=== PATIENT | male | born 1995 | race Caucasian/White ===

== ENCOUNTER 2018-10-11 16:40 | Inpatient (IN) | payer OTHER ==
[~2018-10-11] VITALS: Ht 170.2 cm; Wt 51.3 kg
[2018-10-11 17:08] LABS: PLATELET COUNT, AUTOMATED 353 K/uL (150-450)
--- NOTE | 2018-10-11 17:08 | ER Report ---
History and Physical Time Seen By MD: 16:50 Hx. of Stated Complaint: RLQ PAIN STARTED THIS MORNING, DENIES VOMITING, REPORTS SOME DIARRHEA AND NAUSEA HPI/ROS CHIEF COMPLAINT: RLQ pain HISTORY OF PRESENT ILLNESS: Pt started this morning with sudden onset of rlq pain radiation to back. Pain is sharp and varies from 3-8/10. Worse with palpation and with the car ride over. no dysuria. Pt had diarrhea but was in [place] for spring and contributed it to travelers. No fevers. never had this paina before. REVIEW OF SYSTEMS: Constitutional: No fever, no chills. Eyes: No discharge. ENT: No sore throat. Cardiovascular: No chest pain, no palpitations. Respiratory: No cough, no shortness of breath. Gastrointestinal: + abdominal pain, no vomiting. Genitourinary: No hematuria. Musculoskeletal: + back pain. Skin: No rashes. Neurological: No headache. Allergies: Coded Allergies: meperidine (Verified Allergy, Intermediate, HIVES, 10/11/18) Home Meds No Active Prescriptions or Reported Meds Past Medical/Surgical History Pmhx: childhood asthma Pshx: T&A Reviewed Nurses Notes: Yes Old Medical Records Reviewed: Yes Hx Smoking: No Hx Alcohol Use: Yes Constitutional Vital Sign - Last 24 Hours 10/11/18 10/11/18 10/11/18 10/11/18 16:48 16:49 17:00 17:15 Temp 98.6 Pulse 104 107 93 Resp 16 B/P (MAP) 145/90 (108) 145/90 Pulse Ox 99 100 94 O2 Delivery Room Air 10/11/18 10/11/18 10/11/18 10/11/18 17:45 18:00 18:15 18:30 Pulse 97 100 106 96 B/P (MAP) 117/76 (90) 125/87 (100) Pulse Ox 94 95 96 96 Physical Exam General Appearance: The patient is alert, has no immediate need for airway protection and no signs of toxicity. Eyes: Pupils equal and round no pallor or injection, EOMI ENT: no pharyngeal erythema or exudates, Mucous membranes are moist, TM are nl b/l Respiratory: There are no retractions, lungs are clear to auscultation. Cardiovascular: Regular rate and rhythm. pulses are equal and symmetrical Gastrointestinal: Abdomen is soft with RLQ tenderness, no masses, bowel sounds normal, no guarding, no rigidity or rebound Neurological: Cranial nerves II-XII grossly intact, no sensory or motor loss Skin: Warm and dry, no rashes. Musculoskeletal: Neck is supple non tender, no vertebral tenderness, R CVA tenderness Extremities are nontender, nonswollen and have full range of motion. DIFFERENTIAL DIAGNOSIS: After history and physical exam differential diagnosis was considered for kidney stone, appendicities, colitis Medical Decision Making Data Points Result Diagram: 10/11/18 1701 10/11/18 1701 Laboratory Hematology Test 10/11/18 16:44 10/11/18 17:01 Urine Color Yellow Urine Clarity Clear Urine pH 5.0 pH (4.8-9.5) Urine Specific [place] 1.024 Urine Protein Negative mg/dL (NEGATIVE) Urine Glucose (UA) Negative mg/dL (NEGATIVE) Urine Ketones Negative mg/dL (NEGATIVE) Urine Blood Negative (NEGATIVE) Urine Nitrite Negative (NEGATIVE) Urine Bilirubin Negative (NEGATIVE) Urine Urobilinogen Negative mg/dL (0.2-1.9) Urine Leukocyte Esterase Negative (NEGATIVE) Urine RBC None /HPF (0-2/HPF) Urine WBC <1 /HPF (0-5/HPF) Urine Squamous Epithelial Cells None /LPF (</=FEW) Urine Bacteria Negative /HPF (NONE-FEW) Urine Mucus Few /HPF (NONE-FEW) Red Blood Count 7.55 M/uL (4.00-5.60) Mean Corpuscular Volume 61.0 fL (80.0-96.0) Mean Corpuscular Hemoglobin 19.6 pg (26.0-33.0) Mean Corpuscular Hemoglobin Concent 32.2 g/dL (32.0-36.0) Red Cell Distribution Width 15.9 % (11.5-14.5) Mean Platelet Volume 9.3 fL (7.2-11.1) Neutrophils (%) (Auto) 75.2 % (39.4-72.5) Lymphocytes (%) (Auto) 18.4 % (17.6-49.6) Monocytes (%) (Auto) 5.9 % (4.1-12.4) Eosinophils (%) (Auto) 0.1 % (0.4-6.7) Basophils (%) (Auto) 0.4 % (0.3-1.4) Nucleated RBC Relative Count (auto) 0.0 /100WBC Neutrophils # (Auto) 7.5 K/uL (2.0-7.4) Lymphocytes # (Auto) 1.8 K/uL (1.3-3.6) Monocytes # (Auto) 0.6 K/uL (0.3-1.0) Eosinophils # (Auto) 0.0 K/uL (0.0-0.5) Basophils # (Auto) 0.0 K/uL (0.0-0.1) Nucleated RBC Absolute Count (auto) 0.00 K/uL Peripheral Blood Smear Yes Y/N Sodium Level 138 mmol/L (137-145) Potassium Level 3.8 mmol/L (3.5-5.0) Chloride Level 102 mmol/L (98-107) Carbon Dioxide Level 25 mmol/L (22-30) Blood Urea Nitrogen 14 mg/dl (9-21) Creatinine 1.10 mg/dl (0.66-1.25) Glomerular Filtration Rate Calc > 60.0 Random Glucose 90 mg/dl (75-110) Calcium Level 9.7 mg/dl (8.4-10.2) Total Bilirubin 0.6 mg/dl (0.2-1.3) Aspartate Amino Transf (AST/SGOT) 31 U/L (0-35) Alanine Aminotransferase (ALT/SGPT) 46 U/L (0-56) Alkaline Phosphatase 63 U/L (0-126) Total Protein 8.1 g/dl (6.3-8.2) Albumin 5.2 g/dl (3.5-5.0) Lipase 106 U/L (23-300) Chemistry Test 10/11/18 16:44 10/11/18 17:01 Urine Color Yellow Urine Clarity Clear Urine pH 5.0 pH (4.8-9.5) Urine Specific [place] 1.024 Urine Protein Negative mg/dL (NEGATIVE) Urine Glucose (UA) Negative mg/dL (NEGATIVE) Urine Ketones Negative mg/dL (NEGATIVE) Urine Blood Negative (NEGATIVE) Urine Nitrite Negative (NEGATIVE) Urine Bilirubin Negative (NEGATIVE) Urine Urobilinogen Negative mg/dL (0.2-1.9) Urine Leukocyte Esterase Negative (NEGATIVE) Urine RBC None /HPF (0-2/HPF) Urine WBC <1 /HPF (0-5/HPF) Urine Squamous Epithelial Cells None /LPF (</=FEW) Urine Bacteria Negative /HPF (NONE-FEW) Urine Mucus Few /HPF (NONE-FEW) White Blood Count 9.9 k/uL (4.5-11.0) Red Blood Count 7.55 M/uL (4.00-5.60) Hemoglobin 14.8 g/dL (14.0-18.0) Hematocrit 46.0 % (42.0-52.0) Mean Corpuscular Volume 61.0 fL (80.0-96.0) Mean Corpuscular Hemoglobin 19.6 pg (26.0-33.0) Mean Corpuscular Hemoglobin Concent 32.2 g/dL (32.0-36.0) Red Cell Distribution Width 15.9 % (11.5-14.5) Platelet Count 353 K/uL (150-450) Mean Platelet Volume 9.3 fL (7.2-11.1) Neutrophils (%) (Auto) 75.2 % (39.4-72.5) Lymphocytes (%) (Auto) 18.4 % (17.6-49.6) Monocytes (%) (Auto) 5.9 % (4.1-12.4) Eosinophils (%) (Auto) 0.1 % (0.4-6.7) Basophils (%) (Auto) 0.4 % (0.3-1.4) Nucleated RBC Relative Count (auto) 0.0 /100WBC Neutrophils # (Auto) 7.5 K/uL (2.0-7.4) Lymphocytes # (Auto) 1.8 K/uL (1.3-3.6) Monocytes # (Auto) 0.6 K/uL (0.3-1.0) Eosinophils # (Auto) 0.0 K/uL (0.0-0.5) Basophils # (Auto) 0.0 K/uL (0.0-0.1) Nucleated RBC Absolute Count (auto) 0.00 K/uL Peripheral Blood Smear Yes Y/N Glomerular Filtration Rate Calc > 60.0 Calcium Level 9.7 mg/dl (8.4-10.2) Total Bilirubin 0.6 mg/dl (0.2-1.3) Aspartate Amino Transf (AST/SGOT) 31 U/L (0-35) Alanine Aminotransferase (ALT/SGPT) 46 U/L (0-56) Alkaline Phosphatase 63 U/L (0-126) Total Protein 8.1 g/dl (6.3-8.2) Albumin 5.2 g/dl (3.5-5.0) Lipase 106 U/L (23-300) Urinalysis Test 10/11/18 16:44 Urine Color Yellow Urine Clarity Clear Urine pH 5.0 pH (4.8-9.5) Urine Specific [place] 1.024 Urine Protein Negative mg/dL (NEGATIVE) Urine Glucose (UA) Negative mg/dL (NEGATIVE) Urine Ketones Negative mg/dL (NEGATIVE) Urine Blood Negative (NEGATIVE) Urine Nitrite Negative (NEGATIVE) Urine Bilirubin Negative (NEGATIVE) Urine Urobilinogen Negative mg/dL (0.2-1.9) Urine Leukocyte Esterase Negative (NEGATIVE) Urine RBC None /HPF (0-2/HPF) Urine WBC <1 /HPF (0-5/HPF) Urine Squamous Epithelial Cells None /LPF (</=FEW) Urine Bacteria Negative /HPF (NONE-FEW) Urine Mucus Few /HPF (NONE-FEW) ED Course/Re-evaluation Clinical Indication for ER IV: IV Access ED Course labs and imaging 10/11/2018 7:00:[address] shows signs of enteritis with boarderline measurement of appendix at 7mm diameter. Spoke with Dr. Cuellar and feels that most likely not appendiictis without periappical strranding. Pt could go home with cipro and flagyl and return if worsening or admit and be observed. 10/11/2018 7:11:15 pm Pt spoke with his mom and does not feel comfortable going home. Mom also mentioned sister has chrons. Spoke with Alisa and will admit as observation and start abx. NPO Decision to Disposition Date: Oct 11, 2018 Decision to Disposition Time: 19:11 Depart Departure Latest Vital Signs Vital Signs Date Time Temp Pulse Resp B/P (MAP) Pulse Ox O2 Delivery O2 Flow Rate FiO2 10/11/18 18:30 96 125/87 (100) 96 10/11/18 16:49 98.6 16 Room Air Impression: Primary Impression: Enteritis Additional Impression: RLQ abdominal pain Condition: Condition Unchanged Disposition: Admitted from ER New Scripts No Active Prescriptions or Reported Meds Problem Qualifiers MARIE BREWER DO Oct 11, 2018 17:08
[2018-10-11] MEDS ORDERED: IOPAMIDOL 76% 150 ML INFUS BTL 150 ML ONE (17:23)
--- NOTE | 2018-10-11 18:11 | RADIOLOGY IMAGING REPORT ---
[place] [facility] [place] L[place] : 1995 MR: [id number] V: [id number] EXAM DATE: ORDERING PHYSICIAN: MARIE BREWER TECHNOLOGIST: Location: [facility] - [place] Patient: Cody Linder : 1995 Visit/Account:[id number] Date of Sevice: 10/11/2018 CT ABDOMEN PELVIS W/ CON HISTORY: RLQ pain that radiates to back TECHNIQUE: Following administration of IV contrast contiguous axial images acquired through the abdom en/pelvis. Coronal and sagittal reformatting also performed.Dose Lowering Technique One of the following dose optimization techniques was utilized in the performance of this exam: Autom ated exposure control; adjustment of the mA and/or kV according to the patient's size; or use of an i terative reconstruction technique. Specific details can be referenced in the facility's radiology C T exam operational policy. CONTRAST: 75 mL Isovue-370 COMPARISON: None. FINDINGS: Visualized lung bases: Negative. Hepatobiliary: Negative. Spleen: Spleen is mildly enlarged Adrenals: Negative. Pancreas: Negative. Kidneys ureters or bladder: Negative. Genitalia: Negative. GI: The distal esophagus is distended with fluid and air. The appendix measures up to [address] which is borderline thickened. Infiltrative changes are not seen in the periappendiceal fat. There is wall thickening of the jejunal loops in the left upper abdomen Vessels/spaces/nodes: There are numerous prominent mesenteric lymph nodes. A referenced lymph node i n the mid to lower abdomen to the right of midline measures 1.4 x 1 cm. There are also multiple shot ty retroperitoneal lymph nodes . Bones/soft tissues: Negative. Additional findings: None pertinent. IMPRESSION: The appendix measures up to 7 mm in diameter which is borderline thickened. Infiltrative changes are not seen in the periappendiceal fat. Mild acute appendicitis cannot be totally excluded given the h istory of right lower quadrant pain. There is thickening of the wall of numerous jejunal loops in the left upper abdomen concerning for po tential enteritis. The distal esophagus is distended with fluid and air which may be related to gastroesophageal reflux. The spleen is mildly enlarged and there are numerous prominent mesenteric lymph nodes and shotty retr operitoneal lymph nodes. Although this may be reactive in nature short-term interval follow-up recom mended to exclude a lymphoproliferative process Results were called to MARIE BREWER at 10/11/2018 6:06 PM. Report Dictated By: Melody Verdin MD at 10/11/2018 5:51 PM Report E-Signed By: Melody Verdin MD at 10/11/2018 6:06 PM WSN:[email or web address]
[2018-10-11] MEDS ORDERED: METRONIDAZOLE 500 MG/100 ML IVPB ONE (19:00)
[2018-10-11] MEDS ORDERED: LEVOFLOXACIN/D5W*500 MG/100 ML 100 ML IVPB ONE (19:00)
[2018-10-11 20:25] VITALS: BP 127/80
[2018-10-11] MEDS ORDERED: LR(*) 1000 ML BAG 1,000 ML VA PRN (20:30)
[2018-10-11] MEDS ORDERED: ONDANSETRON 4 MG/2 ML VIAL IVP PRN ×2 (20:45→21:15)
[2018-10-11] MEDS ORDERED: LR(*) 1000 ML BAG 1,000 ML IV PRN (21:13)
[2018-10-11] MEDS ORDERED: FLUSH 10 ML SYR IVP PRN (21:15)
--- NOTE | 2018-10-11 21:32 | Gen Surgery History & Physical ---
History of Present Illness Chief Complaint RLQ abdominal pain History of Present Illness 23yo male presents to the ER with 1 day of RLQ abdominal pain and loss of appetite. He went to [place] for spring break a couple of weeks ago and develop ed what he believes is "traveler's diarrhea." He has improved but he's had loose stools since coming back. He has about 2-3 loose stools/day currently. Normal for him is 2 formed BMs/day. No F/C. No N/V. He doesn't currently fell hungry. His sister has Crohn's disease. In ER, WBC is normal although he has a left shift and a CT reveals enteritis with mesenteric and retroperitoneal adenopathy. The reading radiologist measured his appendix at 7mm but without any inflammatory change but then reported that they couldn't r/o early appendicitis. The patient has no other medical problems, takes no medications, and he's had no abdominal surgery. His only surgeries include T/A as a child, wisdom teeth, and a nodule removed from his eyelid as a child. History Home Meds No Active Prescriptions or Reported Meds Allergies: Coded Allergies: meperidine (Verified Allergy, Intermediate, HIVES, 10/11/18) Review of Systems All Systems Reviewed/Normal: Yes, Except as Noted Gastrointestinal: Abdominal Pain Exam General Appearance: Alert, Awake, No Acute Distress, Afebrile Neuro: No Gross deficits Eyes: PERRLA GI: Other (Soft, nondistended, RLQ TTP, no peritoneal signs.) Extremities: Warm, Perfused Psych: Alert & Oriented X3, Appropriate Mood & Affect Medical Decision Making Data Points Result Diagram: 10/11/18 1701 10/11/18 1701 Assessment and Plan Problems: (1) Enteritis Status: Acute Assessment & Plan: 10/11/18: I have reviewed all studies and I have analyzed the CT images. I agree with the radiology interpretation regarding jejunal inflammation and retroperitoneal and mesenteric adenopathy. I can see the marquise endix clearly on the CT and can see air within the lumen of the appendix on coronal images 40, 45 and the appendix is visualized on sagittal images 52-55. There is also no signs of periappendiceal fluid or inflammation. Because the the other CT findings and minimal concerning appendiceal findings, I've recommended that we start with antibiotic treatment. Initially, I recommended outpatient antibiotics since he lives here in town but after he spoke with his mother via telephone, they don't feel comfortable with outpatient therapy and so I'm admitting him for observation and IV abx, bowel rest, IV fluids, etc. If he fails to improve over the next 24 to 48 hours then will proceed with laparoscopy with appendectomy and I can also examine his small bowel appearance since they are concerned about Crohn's enteritis since his sister has this condition although he reports that he has never before had symptoms of Crohn's. If he does have early appendicitis, it may respond to conservative management with abx as well although, and I discussed this with him, he has up to a 30% chance of recurrent appendicitis within the next 2 years. He seems to understand this discussion and his questions have been answered. He indicates that he is agreeable with proceeding with conservative management with IV abx/bowel rest/IV fluids for the CT findings of enteritis and we'll reserve laparoscopic e xploration if he fails to improve over the next day or two. (2) RLQ abdominal pain Status: Acute Condition Stable. Time Spent: < 30 min Venous Thromboembolism VTE Risk Physician Assess for VTE Risk: Yes Patient's VTE Risk: Low VTE Diagnostic Test 2 Days Prior to Admit: No Antithrombotics Is Pt On Any Antithrombotics?: No JEAN BALLARD MD Oct 11, 2018 21:32
[2018-10-12] VITALS (7 sets, daily range): BP systolic 115–134; BP diastolic 66–83
[2018-10-12] MEDS: PIPERACILLIN/TAZO*3.375GM VIAL 3.375 GM in NS(*) 0.9% 100 ML MINI-BAG 100 ML IVPB SCH ×5 (00:05→23:55)
[2018-10-12] MEDS: metroNIDAZOLE* 500MG/100ML BAG 100 ML IVPB SCH ×4 (03:35→20:39)
[2018-10-12 05:39] LABS: PLATELET COUNT, AUTOMATED 264 K/uL (150-450)
--- NOTE | 2018-10-12 08:12 | General Surgery Progress Note ---
Subjective Progress Notes Subjective Feeling better this morning. Pain still present in RLQ but improved. "Less gurgling." No BM since yesterday but still passing flatus. Physical Exam Vital Signs Date Time Temp Pulse Resp B/P (MAP) Pulse Ox O2 Delivery O2 Flow Rate FiO2 10/12/18 05:19 98.7 85 16 120/75 (90) 98 Room Air Intake and Output 10/12/18 07:00 Intake Total 1404 ml Balance 1404 ml Intake IV Total 1404 ml General Appearance: Alert, Awake, No Acute Distress, Afebrile GI: Other (Soft, mild RLQ TTP, no peritoneal signs.) Extremities: Warm, Perfused Result Diagram: 10/12/1851810/12/18518 Assessment and Plan Problems: (1) Enteritis Status: Acute Assessment & Plan: 10/11/18: I have reviewed all studies and I have analyzed the CT images. I agree with the radiology interpretation regarding jejunal inflammation and retroperitoneal and mesenteric adenopathy. I can see the appendix clearly on the CT and can see air within the lumen of the appendix on coronal images 40, 45 and the appendix is visualized on sagittal images 52-55. There is also no signs of periappendiceal fluid or inflammation. Because the the other CT findings and minimal concerning appendiceal findings, I've recommended that we start with antibiotic treatment. Initially, I recommended outpatient antibiotics since he lives here in town but after he spoke with his mother via telephone, they don't feel comfortable with outpatient therapy and so I'm admitting him for observation and IV abx, bowel rest, IV fluids, etc. If he fails to improve over the next 24 to 48 hours then will proceed with laparoscopy with appendectomy and I can also examine his small bowel appearance since they are concerned about Crohn's enteritis since his sister has this condition although he reports that he has never before had symptoms of Crohn's. If he does have early appendicitis, it may respond to conservative management with abx as well although, and I discussed this with him, he has up to a 30% chance of recurrent appendicitis within the next 2 years. He seems to understand this discussion and his questions have been answered. He indicates that he is agreeable with proceeding with conservative management with IV abx/bowel rest/IV fluids for the CT findings of enteritis and we'll reserve laparoscopic exploration if he fails to improve over the next day or two. 10/12/18: Doing better. Appetite slightly improved. Will continue IV abx and bowel rest until this afternoon until it's more clear that he won't be needing surgery. He seems to understand and seems encouraged and agreeable with this plan. (2) RLQ abdominal pain Status: Acute Condition Stable. Time Spent: < 30 min Exam Sepsis Risk: No Definite Risk JEAN BALLARD MD Oct 12, 2018 08:12
[2018-10-12] MEDS: MORPHINE 2 MG/ML SYR IVP PRN ×2 (08:26→21:32)
[2018-10-12] MEDS ORDERED: PANTOPRAZOLE SOD 40 MG IV VIAL IVP SCH (09:00)
[2018-10-12] MEDS ORDERED: LR(*) 1000 ML BAG 1,000 ML IV PRN (16:30)
[2018-10-12] MEDS ORDERED: LEVOFLOXACIN/D5W*500 MG/100 ML 100 ML IVPB SCH (20:00)
[2018-10-12] MEDS ORDERED: MORPHINE 2 MG/ML SYR IVP ONE (23:00)
[2018-10-12] MEDS: ACETAMINOPHEN(*)1000 MG/100 ML 100 ML IVPB ONE (23:00)
[2018-10-13] MEDS: ACETAMINOPHEN(*)1000 MG/100 ML 100 ML IVPB ONE (00:52)
[2018-10-13 03:25] VITALS: BP 109/69
[2018-10-13] MEDS: metroNIDAZOLE* 500MG/100ML BAG 100 ML IVPB SCH (03:34)
[2018-10-13] MEDS: PIPERACILLIN/TAZO*3.375GM VIAL 3.375 GM in NS(*) 0.9% 100 ML MINI-BAG 100 ML IVPB SCH (05:36)
[2018-10-13 06:07] LABS: PLATELET COUNT, AUTOMATED 225 K/uL (150-450)
--- NOTE | 2018-10-13 07:10 | General Surgery Progress Note ---
Subjective Progress Notes Subjective Feeling better this morning. Had episode of pain last night but he thinks he "ate too much too fast." Now feeling "normal" this morning. Physical Exam Vital Signs Date Time Temp Pulse Resp B/P (MAP) Pulse Ox O2 Delivery O2 Flow Rate FiO2 10/13/18 03:25 97.9 70 109/69 (82) 94 Room Air 10/12/18 18:44 16 Intake and Output 10/13/18 07:00 Intake Total 1750 ml Balance 1750 ml Intake Oral 0 ml IV Total 1750 ml # Voids 3 # Bowel Movements 1 General Appearance: Alert, Awake, No Acute Distress, Afebrile GI: Other (Soft, mild improving RLQ TTP.) Extremities: Warm, Perfused Result Diagram: 10/13/1851810/13/18511 Assessment and Plan Problems: (1) Enteritis Status: Acute Assessment & Plan: 10/11/18: I have reviewed all studies and I have analyzed the CT images. I agree with the radiology interpretation regarding jejunal inflammation and retroperitoneal and mesenteric adenopathy. I can see the appendix clearly on the CT and can see air within the lumen of the appendix on coronal images 40, 45 and the appendix is visualized on sagittal images 52-55. There is also no signs of periappendiceal fluid or inflammation. Because the the other CT findings and minimal concerning appendiceal findings, I've recommended that we start with antibiotic treatment. Initially, I recommended outpatient antibiotics since he lives here in town but after he spoke with his mother via telephone, they don't feel comfortable with outpatient therapy and so I'm admitting him for observation and IV abx, bowel rest, IV fluids, etc. If he fails to improve over the next 24 to 48 hours then will proceed with laparoscopy with appendectomy and I can also examine his small bowel appearance since they are concerned about Crohn's enteritis since his sister has this condition although he reports that he has never before had symptoms of Crohn's. If he does have early appendicitis, it may respond to conservative management with abx as well although, and I discussed this with him, he has up to a 30% chance of recurrent appendicitis within the next 2 years. He seems to understand this discussion and his questions have been answered. He indicates that he is agree able with proceeding with conservative management with IV abx/bowel rest/IV fluids for the CT findings of enteritis and we'll reserve laparoscopic exploration if he fails to improve over the next day or two. 10/12/18: Doing better. Appetite slightly improved. Will continue IV abx and bowel rest until this afternoon until it's more clear that he won't be needing surgery. He seems to understand and seems encouraged and agreeable with this plan. 10/13/18: Doing better. Abdominal exam is benign. WBC normal, ESR normal, afebrile. Will switch to PO abx and will check in on him later this morning and if he's doing well on PO abx then will d/c to home with close outpatient f/u. (2) RLQ abdominal pain Status: Acute Condition STable. Time Spent: < 30 min Exam Sepsis Risk: No Definite Risk JEAN BALLARD MD Oct 13, 2018 07:10
[2018-10-13 07:24] VITALS: BP 119/77
[2018-10-13] MEDS ORDERED: AMOX/CLAV 875 MG TAB PO SCH (08:00)
--- NOTE | 2018-10-13 08:14 | Antimicrobial Stewardship ---
Antimicrobial Time Out Antimicrobial Stewardship MD Service: Other (Dr Cuellar, surgeon) Indications: Other (enteritis) Antimicrobial Used Levaquin times 1 in the ER; Metronidazole and Zosyn IVPB on medical floor and transitioned to oral metronidazole and Augmentin. Start Date: Oct 11, 2018 Culture Results: N/A VIDAL WALLER Oct 13, 2018 08:14
[2018-10-13] MEDS ORDERED: PANTOPRAZOLE SOD 40 MG TABEC PO SCH (09:00)
[2018-10-13] MEDS: METRONIDAZOLE 500 MG TABLET PO SCH ×2 (09:49→12:33)
[2018-10-13 11:33] VITALS: BP 121/72
[2018-10-13] MEDS ORDERED: METR500T15 PO (12:09)
[2018-10-13] MEDS ORDERED: AMOX1TAB9 PO (12:09)
--- NOTE | 2018-10-13 12:13 | Short(Outpt) Discharge Summary ---
Discharge Summary Reason for Hosp/Final Diag: (1) Enteritis Status: Acute Hospital Course & Plan: 10/11/18: I have reviewed all studies and I have analyzed the CT images. I agree with the radiology interpretation regarding jejunal inflammation and retroperitoneal and mesenteric adenopathy. I can see the appendix clearly on the CT and can see air within the lumen of the appendix on coronal images 40, 45 and the appendix is visualized on sagittal images 52- 55. There is also no signs of periappendiceal fluid or inflammation. Because the the other CT findings and minimal concerning appendiceal findings, I've recommended that we start with antibiotic treatment. Initially, I recommended outpatient antibiotics since he lives here in town but after he spoke with his mother via telephone, they don't feel comfortable with outpatient therapy and so I'm admitting him for observation and IV abx, bowel rest, IV fluids, etc. If he fails to improve over the next 24 to 48 hours then will proceed with laparoscopy with appendectomy and I can also examine his small bowel appearance since they are concerned about Crohn's enteritis since his sister has this condition although he reports that he has never before had symptoms of Crohn's. If he does have early appendicitis, it may respond to conservative management with abx as well although, and I discussed this with him, he has up to a 30% chance of recurrent appendicitis within the next 2 years. He seems to understand this discussion and his questions have been answered. He indicates that he is agreeable with proceeding with conservative management with IV abx/bowel rest/IV fluids for the CT findings of enteritis and we'll reserve laparoscopic ex ploration if he fails to improve over the next day or two. 10/12/18: Doing better. Appetite slightly improved. Will continue IV abx and bowel rest until this afternoon until it's more clear that he won't be needing surgery. He seems to understand and seems encouraged and agreeable with this plan. 10/13/18: Doing better. Abdominal exam is benign. WBC normal, ESR normal, afebrile. Will switch to PO abx and will check in on him later this morning and if he's doing well on PO abx then will d/c to home with close outpatient f/u. 10/13/18 (noon): Continues to do well. Afebrile and vitals all look good. Tolerating PO abx. Will d/c to home with o/p f/u. (2) RLQ abdominal pain Status: Acute Departure Discharge to: Home, Self Care Discharge Instructions Home Meds Active Scripts Metronidazole (METRONIDAZOLE) 500 Mg Tablet, 1 TAB PO QID, #40 TAB 0 Refills Prov:JEAN BALLARD MD 10/13/18 Amoxicillin/Potassium Clav (AMOX TR-K CLV 875-125 MG TAB) 1 Each Tablet, 1 TAB PO BIDBS, #20 TAB 0 Refills Prov:JEAN BALLARD MD 10/13/18 Follow up Referrals: General Surgery - 10/18/18 @ Surgery, General with JEAN BALLARD MD You have a follow up appointment scheduled with Dr. Ballard on 10/18/18, at 4:15pm. Diet: Regular Activity: As Tolerated Special Instructions: Keep taking the 2 antibiotics for the next 10 days, until you run out of pills. The augmentin is 1 tablet twice each day and the metronidazole is 1 tablet 4 times each day. Stick to a light diet with [id number] foods for the next couple of days while the intestine inflammation improves and then after 2 days you can expand your diet to include whatever you feel comfortable eating. If you feel that you are developing fevers, chills, worsening diarrhea, or worsening abdominal pain go to the ER for reevaluation. JEAN BALLARD MD Oct 13, 2018 12:13
[2018-10-14] MEDS ORDERED: ONDA4TAB9 PO (05:46)
[2018-10-14] MEDS ORDERED: TRAM-420 PO (05:46)
== END 2018-10-13 14:08 | disposition home or self-care (01) | DRG 392 ==
LOC: ER 16:58 → MED 19:26
PROVIDERS: ADMIT Surgery; ATTEND Surgery
DX: K52.9 Noninfective gastroenteritis and colitis, unspecified (principal); R59.0 Localized enlarged lymph nodes
CPT/HCPCS: 36415; 74177; 81001; 82040; 82247; 82310; 82374; 82435; 82565; 82947; 83690; 84075; 84132; 84155; 84295; 84450; 84460; 84520; 85025; 85651; 86140; 99285; C9113; J0131; J1956; J2270; J2543; J3490; J7120; Q9967

== ENCOUNTER 2018-10-14 03:56 | Emergency (ER) | payer OTHER ==
[~2018-10-14 03:56] MED LIST: AMOX1TAB9 PO; METR500T15 PO
--- NOTE | 2018-10-14 03:59 | ER Report ---
History and Physical Time Seen By MD: 03:59 HPI/ROS CHIEF COMPLAINT: Right lower quadrant abdominal pain, nausea HISTORY OF PRESENT ILLNESS: Patient is a 23-year-old male here with complaints of persistent right lower quadrant abdominal pain, now with nausea. Patient was reportedly admitted for observation by Dr. Egan, and was sent home with Augmentin, Flagyl. Patient is tolerating oral intake however has decreased appetite, loose stools. Patient is hemodynamically stable, afebrile at time of evaluation. Patient denies taking oral analgesics at home. REVIEW OF SYSTEMS: Constitutional: No fever, no chills. Eyes: No discharge. ENT: No sore throat. Cardiovascular: No chest pain, no palpitations. Respiratory: No cough, no shortness of breath. Gastrointestinal: + persistent RLQ abdominal pain, + nausea with no vomiting, + diarrhea Genitourinary: No hematuria. Musculoskeletal: No back pain. Skin: No rashes. Neurological: No headache. Allergies: Coded Allergies: meperidine (Verified Allergy, Intermediate, HIVES, 10/14/18) Home Meds Active Scripts Metronidazole (METRONIDAZOLE) 500 Mg Tablet, 1 TAB PO QID, #40 TAB 0 Refills Prov:JEAN BALLARD MD 10/13/18 Amoxicillin/Potassium Clav (AMOX TR-K CLV 875-125 MG TAB) 1 Each Tablet, 1 TAB PO BIDBS, #20 TAB 0 Refills Prov:JEAN BALLARD MD 10/13/18 Hx Smoking: No Hx Alcohol Use: Yes Constitutional Vital Sign - Last 24 Hours 10/14/18 10/14/18 10/14/18 10/14/18 04:05 04:07 04:11 04:26 Temp 98.2 Pulse 75 81 81 Resp 16 B/P (MAP) 129/95 (106) 129/95 Pulse Ox 96 100 100 O2 Delivery Room Air 10/14/18 04:41 Pulse 85 Pulse Ox 98 Physical Exam General Appearance: The patient is alert, has no immediate need for airway protection and no signs of toxicity. + uncomfortable appearing Eyes: Pupils equal and round no pallor or injection. ENT, Mouth: Mucous membranes are moist. Respiratory: There are no retractions, lungs are clear to auscultation. Cardiovascular: Regular rate and rhythm. Gastrointestinal: Abdomen is soft + tender on palpation in the RLQ, no masses, bowel sounds normal. Neurological: No focal neuro deficits Skin: Warm and dry, no rashes. Musculoskeletal: Neck is supple non tender. Extremities are nontender, nonswollen and have full range of motion. DIFFERENTIAL DIAGNOSIS: After history and physical exam differential diagnosis was considered for abdominal pain including but not limited to appendicitis, cholecystitis, gastritis and urinary tract infection. Medical Decision Making Data Points Result Diagram: 10/14/18 0425 10/14/18 0425 Laboratory Hematology Test 10/14/18 04:25 10/14/18 05:24 Red Blood Count 6.97 M/uL (4.00-5.60) Mean Corpuscular Volume 61.4 fL (80.0-96.0) Mean Corpuscular Hemoglobin 19.8 pg (26.0-33.0) Mean Corpuscular Hemoglobin Concent 32.2 g/dL (32.0-36.0) Red Cell Distribution Width 15.5 % (11.5-14.5) Mean Platelet Volume 9.2 fL (7.2-11.1) Neutrophils (%) (Auto) 68.4 % (39.4-72.5) Lymphocytes (%) (Auto) 22.3 % (17.6-49.6) Monocytes (%) (Auto) 8.0 % (4.1-12.4) Eosinophils (%) (Auto) 0.7 % (0.4-6.7) Basophils (%) (Auto) 0.6 % (0.3-1.4) Nucleated RBC Relative Count (auto) 0.0 /100WBC Neutrophils # (Auto) 6.0 K/uL (2.0-7.4) Lymphocytes # (Auto) 2.0 K/uL (1.3-3.6) Monocytes # (Auto) 0.7 K/uL (0.3-1.0) Eosinophils # (Auto) 0.1 K/uL (0.0-0.5) Basophils # (Auto) 0.0 K/uL (0.0-0.1) Nucleated RBC Absolute Count (auto) 0.00 K/uL Peripheral Blood Smear Yes Y/N Sodium Level 138 mmol/L (137-145) Potassium Level 3.7 mmol/L (3.5-5.0) Chloride Level 104 mmol/L (98-107) Carbon Dioxide Level 23 mmol/L (22-30) Blood Urea Nitrogen 13 mg/dl (9-21) Creatinine 1.00 mg/dl (0.66-1.25) Glomerular Filtration Rate Calc > 60.0 Random Glucose 89 mg/dl (75-110) Lactate 1.2 mmol/L (0.7-2.1) Calcium Level 10.1 mg/dl (8.4-10.2) Total Bilirubin 1.0 mg/dl (0.2-1.3) Aspartate Amino Transf (AST/SGOT) 25 U/L (0-35) Alanine Aminotransferase (ALT/SGPT) 38 U/L (0-56) Alkaline Phosphatase 53 U/L (0-126) C-Reactive Protein < 0.5 mg/dl (<1.0) Total Protein 7.2 g/dl (6.3-8.2) Albumin 4.9 g/dl (3.5-5.0) Lipase 104 U/L (23-300) Urine Color Yellow Urine Clarity Clear Urine pH 6.0 pH (4.8-9.5) Urine Specific [place] 1.026 Urine Protein Negative mg/dL (NEGATIVE) Urine Glucose (UA) Negative mg/dL (NEGATIVE) Urine Ketones 20 mg/dL (NEGATIVE) Urine Blood Negative (NEGATIVE) Urine Nitrite Negative (NEGATIVE) Urine Bilirubin Negative (NEGATIVE) Urine Urobilinogen Negative mg/dL (0.2-1.9) Urine Leukocyte Esterase Trace (NEGATIVE) Urine RBC <1 /HPF (0-2/HPF) Urine WBC None /HPF (0-5/HPF) Urine Squamous Epithelial Cells None /LPF (</=FEW) Urine Bacteria Negative /HPF (NONE-FEW) Urine Mucus None /HPF (NONE-FEW) Chemistry Test 10/14/18 04:25 10/14/18 05:24 White Blood Count 8.8 k/uL (4.5-11.0) Red Blood Count 6.97 M/uL (4.00-5.60) Hemoglobin 13.8 g/dL (14.0-18.0) Hematocrit 42.8 % (42.0-52.0) Mean Corpuscular Volume 61.4 fL (80.0-96.0) Mean Corpuscular Hemoglobin 19.8 pg (26.0-33.0) Mean Corpuscular Hemoglobin Concent 32.2 g/dL (32.0-36.0) Red Cell Distribution Width 15.5 % (11.5-14.5) Platelet Count 266 K/uL (150-450) Mean Platelet Volume 9.2 fL (7.2-11.1) Neutrophils (%) (Auto) 68.4 % (39.4-72.5) Lymphocytes (%) (Auto) 22.3 % (17.6-49.6) Monocytes (%) (Auto) 8.0 % (4.1-12.4) Eosinophils (%) (Auto) 0.7 % (0.4-6.7) Basophils (%) (Auto) 0.6 % (0.3-1.4) Nucleated RBC Relative Count (auto) 0.0 /100WBC Neutrophils # (Auto) 6.0 K/uL (2.0-7.4) Lymphocytes # (Auto) 2.0 K/uL (1.3-3.6) Monocytes # (Auto) 0.7 K/uL (0.3-1.0) Eosinophils # (Auto) 0.1 K/uL (0.0-0.5) Basophils # (Auto) 0.0 K/uL (0.0-0.1) Nucleated RBC Absolute Count (auto) 0.00 K/uL Peripheral Blood Smear Yes Y/N Glomerular Filtration Rate Calc > 60.0 Lactate 1.2 mmol/L (0.7-2.1) Calcium Level 10.1 mg/dl (8.4-10.2) Total Bilirubin 1.0 mg/dl (0.2-1.3) Aspartate Amino Transf (AST/SGOT) 25 U/L (0-35) Alanine Aminotransferase (ALT/SGPT) 38 U/L (0-56) Alkaline Phosphatase 53 U/L (0-126) C-Reactive Protein < 0.5 mg/dl (<1.0) Total Protein 7.2 g/dl (6.3-8.2) Albumin 4.9 g/dl (3.5-5.0) Lipase 104 U/L (23-300) Urine Color Yellow Urine Clarity Clear Urine pH 6.0 pH (4.8-9.5) Urine Specific [place] 1.026 Urine Protein Negative mg/dL (NEGATIVE) Urine Glucose (UA) Negative mg/dL (NEGATIVE) Urine Ketones 20 mg/dL (NEGATIVE) Urine Blood Negative (NEGATIVE) Urine Nitrite Negative (NEGATIVE) Urine Bilirubin Negative (NEGATIVE) Urine Urobilinogen Negative mg/dL (0.2-1.9) Urine Leukocyte Esterase Trace (NEGATIVE) Urine RBC <1 /HPF (0-2/HPF) Urine WBC None /HPF (0-5/HPF) Urine Squamous Epithelial Cells None /LPF (</=FEW) Urine Bacteria Negative /HPF (NONE-FEW) Urine Mucus None /HPF (NONE-FEW) Urinalysis Test 10/14/18 05:24 Urine Color Yellow Urine Clarity Clear Urine pH 6.0 pH (4.8-9.5) Urine Specific [place] 1.026 Urine Protein Negative mg/dL (NEGATIVE) Urine Glucose (UA) Negative mg/dL (NEGATIVE) Urine Ketones 20 mg/dL (NEGATIVE) Urine Blood Negative (NEGATIVE) Urine Nitrite Negative (NEGATIVE) Urine Bilirubin Negative (NEGATIVE) Urine Urobilinogen Negative mg/dL (0.2-1.9) Urine Leukocyte Esterase Trace (NEGATIVE) Urine RBC <1 /HPF (0-2/HPF) Urine WBC None /HPF (0-5/HPF) Urine Squamous Epithelial Cells None /LPF (</=FEW) Urine Bacteria Negative /HPF (NONE-FEW) Urine Mucus None /HPF (NONE-FEW) EKG/Imaging Imaging PATIENT NAME: oCdy Linder : 1995 MR: [id number] V: [id number] EXAM DATE: [id number] ORDERING PHYSICIAN: RONNY MADISON TECHNOLOGIST: Location: [facility] Patient: Cody Linder : 1995 Visit/Account:[id number] Date of Sevice: 10/14/2018 CT ABDOMEN PELVIS W/ CON HISTORY: Recurrent abdominal pain. On antibiotics. COMPARISON: 10/11/2018. TECHNIQUE: Axial images were obtained from the lung bases through the symphysis pubis with intravenous contrast. Sagittal and coronal reformats were performed. One of the following dose optimization techniques was utilized in the performance of this exam: Automated exposure control; adjustment of the mA and/or kV according to the patient's size; or use of an iterative reconstruction technique. Specific details can be referenced in the facility's radiology CT exa m operational policy. CONTRAST: 75 mL IV Isovue-370. FINDINGS: Lower chest: Normal. Liver: Normal. Gallbladder/biliary: Normal. Pancreas: Normal. Spleen: Prominent in size. Adrenals: Normal. Kidneys/ureters/bladder: Normal. GI/mesentery/peritoneal cavity: There is no bowel obstruction. There is no wall thickening or pericolonic stranding. The appendix is normal. No diverticula. There is a tiny amount of simple pelvic free fluid that has mildly increased in amount. No abscess or drainable fluid collection. No free air. Vessels: No atherosclerotic disease. No aneurysm. No dissection. Nodes: There are numerous lymph nodes at the root of the mesentery, prominent in number and size, but none enlarged per measurement criteria. There are also numerous small retroperitoneal lymph nodes. No lymphadenopathy. Pelvis: Normal. Bones/vertebra/soft tissues: There are Schmorl nodes of the lower thoracic spine. There is minimal wedging of T10 and T11, unchanged, and likely physiologic. No listhesis. The spinal canal is normal in caliber. IMPRESSION: 1. Numerous prominent mesenteric lymph nodes, suspicious for mesenteric adenitis. There is a tiny amount of pelvic free fluid that has increased, likely reactive. 2. Thickening of jejunal loops has resolved. 3. Normal appendix. ED Course/Re-evaluation ED Course Patient is a 23-year-old male here with complaints of persistent right lower quadrant abdominal pain with recent admission for the same, discharged on Augmentin and Flagyl. Patient denies taking home oral analgesics and reports worsening nausea compared to prior prompting evaluation. Patient has been having significant nausea without vomiting, denies bloody stools or hematuria. Patient has tolerated oral intake without issues but has had decreased appetite. Labs were unremarkable. CT imaging showed a normal appendix, mesenteric lymphadenopathy, CRP was negative. Recommend continuing in completing course of antimicrobial therapy. Patient given prescription for Zofran, tramadol as needed for breakthrough pain. Return precautions provided. Close PCP follow-up recommended. Decision to Disposition Date: Oct 14, 2018 Decision to Disposition Time: 05:44 Depart Departure Latest Vital Signs Vital Signs Date Time Temp Pulse Resp B/P (MAP) Pulse Ox O2 Delivery O2 Flow Rate FiO2 10/14/18 04:41 85 98 10/14/18 04:07 98.2 16 129/95 Room Air Impression: Primary Impression: RLQ abdominal pain Condition: Improved Disposition: HOME OR SELF-CARE New Scripts Ondansetron 4 Mg Odt (ONDANSETRON 4 MG ODT) 4 Mg Tab.rapdis 4 MG PO ONCE, #30 TAB Prov: RONNY MADISON DO 10/14/18 Tramadol Hcl (TRAMADOL HCL) 50 Mg Tablet 50 MG PO Q6H PRN for PAIN, #12 TAB 0 Refills Prov: RONNY MADISON DO 10/14/18 Patient Instructions: Abdominal Pain (ED) Additional Instructions: CT imaging showed no signs of appendicitis today. Your labs were found to be normal. You may take Zofran 1 tablet every 4-6 hours as needed for nausea control. You may take 1 tablet of tramadol every 6-8 hours as needed for breakthrough pain control. Please consider taking Tylenol or ibuprofen as needed for primary pain control. Please return promptly if you develop fevers, abdominal distention, worsening abdominal pain, inability to keep down food or fluids, blood in the stools or urine. Please follow-up with your family doctor in the next 24-48 hours for repeat evaluation. RONNY MADISON DO Oct 14, 2018 03:59
[2018-10-14] MEDS ORDERED: NS(*) 0.9% 1000 ML BAG 1,000 ML IV ONE (04:02)
[2018-10-14] MEDS ORDERED: ONDANSETRON 4 MG/2 ML VIAL IVP ONE (04:05)
[2018-10-14] MEDS ORDERED: fentaNYL CITR 100 MCG/2 ML AMP IVP ONE (04:05)
[2018-10-14] MEDS ORDERED: IOPAMIDOL 76% 150 ML INFUS BTL 150 ML ONE (04:26)
[2018-10-14 04:39] LABS: PLATELET COUNT, AUTOMATED 266 K/uL (150-450)
[2018-10-14 05:30] VITALS: BP 121/69
--- NOTE | 2018-10-14 05:40 | RADIOLOGY IMAGING REPORT ---
FACILITY: [facility] PATIENT NAME: Cody Linder : 1995 MR: [id number] V: [id number] EXAM DATE: [id number] ORDERING PHYSICIAN: RONNY MADISON TECHNOLOGIST: Location: [facility] Patient: Cody Linder : 1995 Visit/Account:[id number] Date of Sevice: 10/14/2018 CT ABDOMEN PELVIS W/ CON HISTORY: Recurrent abdominal pain. On antibiotics. COMPARISON: 10/11/2018. TECHNIQUE: Axial images were obtained from the lung bases through the symphysis pubis with intravenou s contrast. Sagittal and coronal reformats were performed. One of the following dose optimization techniques was utilized in the performance of this exam: Autom ated exposure control; adjustment of the mA and/or kV according to the patient's size; or use of an i terative reconstruction technique. Specific details can be referenced in the facility's radiology CT exam operational policy. CONTRAST: 75 mL IV Isovue-370. FINDINGS: Lower chest: Normal. Liver: Normal. Gallbladder/biliary: Normal. Pancreas: Normal. Spleen: Prominent in size. Adrenals: Normal. Kidneys/ureters/bladder: Normal. GI/mesentery/peritoneal cavity: There is no bowel obstruction. There is no wall thickening or pericol onic stranding. The appendix is normal. No diverticula. There is a tiny amount of simple pelvic free fluid that has mildly increased in amount. No abscess or drainable fluid collection. No free air. Vessels: No atherosclerotic disease. No aneurysm. No dissection. Nodes: There are numerous lymph nodes at the root of the mesentery, prominent in number and size, but none enlarged per measurement criteria. There are also numerous small retroperitoneal lymph nodes. N o lymphadenopathy. Pelvis: Normal. Bones/vertebra/soft tissues: There are Schmorl nodes of the lower thoracic spine. There is minimal we dging of T10 and T11, unchanged, and likely physiologic. No listhesis. The spinal canal is normal in caliber. IMPRESSION: 1. Numerous prominent mesenteric lymph nodes, suspicious for mesenteric adenitis. There is a tiny amanda unt of pelvic free fluid that has increased, likely reactive. 2. Thickening of jejunal loops has resolved. 3. Normal appendix. Report Dictated By: Iris Jones at 10/14/2018 5:24 AM Report E-Signed By: Iris Jones at 10/14/2018 5:35 AM WSN:[id number]
[2018-10-14] MEDS ORDERED: TRAM-420 PO (05:46)
[2018-10-14] MEDS ORDERED: ONDA4TAB9 PO (05:46)
== END 2018-10-14 05:57 | disposition home or self-care (01) ==
LOC: ER 04:34
DX: R10.31 Right lower quadrant pain (principal)
CPT/HCPCS: 74177; 81001; 83605; 83690; 85025; 86140; 96361; 96374; 96375; 99284; J2405; J3010; J7030; Q9967; 82040; 82247; 82310; 82374; 82435; 82565; 82947; 84075; 84132; 84155; 84295; 84450; 84460; 84520